=== PATIENT | male | born 1970 | race Caucasian/White ===

== ENCOUNTER 2024-05-03 07:30 | Emergency (ER) | payer MEDICARE ==
[2024-05-03] MEDS: Ibuprofen 600 MG Tab PO ONE (07:58)
[2024-05-03] MEDS: Cephalexin 500 MG Cap PO ONE (07:58)
== END 2024-05-03 08:03 | disposition home or self-care (01) ==
LOC: MW.ED 07:30
DX: K04.7 Periapical abscess without sinus (principal); I10 Essential (primary) hypertension; F17.210 Nicotine dependence, cigarettes, uncomplicated; Z90.49 Acquired absence of other specified parts of digestive tract; Z75.8 Other problems related to medical facilities and other health care
CPT/HCPCS: 99282; A9270; 99283